=== PATIENT | female | born 1950 | race Caucasian/White ===

== ENCOUNTER 2017-04-23 04:40 | Observation (INO) ==
--- NOTE | 2017-04-23 04:58 | Emergency Department Note ---
Disposition Clinical Impression: Elevated troponin, Kidney stone on right side Disposition: Admitted As Inpatient Condition: Fair Referrals: NONE,PCP [Primary Care Provider] - Forms: ED Satisfaction Letter, Work/School Release Time of Disposition: 07:03 General Adult HPI - General Chief complaint: ED Abdominal Pain Stated complaint: abdominal pain Time Seen by Provider: 04/23/17 04:45 Source: patient Limitations: no limitations Nursing Notes Reviewed: Yes Vital Signs Reviewed: Yes - History of Present Illness HPI Narrative: Patient is a 66-year-old female with a PMHx of DM, HLD, HTN, pancreas surgery, bladder repair, bowel repair, presents to emergency department with the complaint of right lower quadrant abdominal pain that started at 2:00 AM this morning. She describes it as a sharp stabbing pain that waxes and wanes. The pain radiates into her right flank and down into her right groin. She denies any urinary symptoms. Patient states she has also had nausea with the pain, however, no emesis. Patient denies any fevers, chills, headaches, chest pain, shortness of breath or diarrhea. Pain Scale: 8 - Related Data Home Medications Medication Instructions Recorded Confirmed Aspirin [Lo-Dose Aspirin EC] 81 mg PO QPM 03/16/16 12/29/16 BuPROPion SR (12 HR) [Wellbutrin 100 mg PO BID 03/16/16 12/29/16 SR] Budesonide/Formoterol 160/4.5 2 puff IH BID 03/16/16 03/16/16 [Symbicort 160/4.5] Insulin NPH, HUMAN [HumuLIN N] 40 - 55 unit SQ BID 03/16/16 03/16/16 Losartan Potassium [Cozaar] 100 mg PO QPM 03/16/16 12/29/16 Venlafaxine XR (24 HR) [Effexor Xr] 150 mg PO QPM 03/16/16 03/16/16 metFORMIN [Glucophage] 1,000 mg PO DAILY 03/16/16 12/29/16 Cranberry Conc/C/Bacill Coag 1 each PO DAILY 12/29/16 12/29/16 [Cranberry Tablet] Dicyclomine [Bentyl] 10 mg PO TID PRN 12/29/16 12/29/16 Esomeprazole Magnesium [Nexium] 40 mg PO DAILY 12/29/16 12/29/16 Estradiol [Estrace] 2 gm VG DAILY 12/29/16 12/29/16 [place]-3 Acid Ethyl Esters [Lovaza] 2 gm PO BID 12/29/16 12/29/16 Pantoprazole Sodium 40 mg PO BID 12/29/16 12/29/16 Pravastatin Sodium [Pravachol] 40 mg PO QPM 12/29/16 12/29/16 Sucralfate [Carafate] 1 gm PO QIDAC 12/29/16 12/29/16 Temazepam [Restoril] 30 mg PO HS 12/29/16 12/29/16 glipiZIDE [Glucotrol] 5 mg PO BID 12/29/16 12/29/16 Previous Rx's Medication Instructions Recorded Albuterol Sulfate [Albuterol 1 puff IH Q6HR PRN #1 hfa.aer.ad 03/17/16 Inhaler] Ciprofloxacin [Cipro] 500 mg PO BID #20 tablet 12/29/16 GuaiFENesin/Codeine [ROBITUSSIN 5 ml PO Q4-6H PRN #120 ml 12/29/16 w/CODEINE] predniSONE [PredniSONE] 40 mg PO DAILY #10 tablet 12/29/16 Allergies Allergy/AdvReac Type Severity Reaction Status Date / Time Penicillins Allergy Rash Verified 03/16/16 07:38 Sulfa (Sulfonamide Allergy Hives Verified 03/16/16 07:38 Antibiotics) fenofibrate [From Tricor] AdvReac See Verified 03/16/16 07:38 Comments propoxyphene [From Darvon] AdvReac Vomiting Verified 05/29/15 14:34 ivp dye Allergy Hives Uncoded 03/16/16 07:38 All systems ED: reviewed and negative except as stated. Review of Systems: As Per HPI Constitutional: Denies: fever, chills Cardiovascular: Denies: chest pain, palpitations Respiratory: Denies: cough, dyspnea, wheezes Gastrointestinal: Reports: abdominal pain, nausea. Denies: vomiting, diarrhea, hematemesis, melena, hematochezia Genitourinary: Denies: urgency, dysuria, frequency Musculoskeletal: Denies: back pain, neck pain Integumentary: Denies: rash, abrasion Neurological: Denies: headache, weakness, numbness Past Medical History - Past Medical History Attestation: Yes The following information was validated with the patient. Medical history: Reports: asthma, diabetes, hyperlipidemia, hypertension Surgical history: Reports: colectomy (partial), herniorrhaphy, hysterectomy, other (Bladder surgery; pancrease surgery) Psychiatric history: Reports: depression FINANCIAL DIRECTOR history: Reports: bilateral tubal ligation - Social History Smoking Status: Never smoker Smokeless Tobacco Status: No Alcohol use: Reports: none Drug use: Reports: none Physical Exam CONSTITUTIONAL: Alert and oriented X3, well-nourished, well appearing, in no apparent distress. Patient vital signs are stable. HEAD: Normocephalic; atraumatic. EYES: PERRL, no scleral icterus. NOSE: The nose is normal in appearance without rhinorrhea RESP: Normal chest excursion with respiration; breath sounds clear and equal bilaterally; no wheezes, rhonchi, or rales CARD: Regular rhythm, without murmurs, rub or gallop ABD: Non-distended; tenderness greatest in the right lower quadrant without rebound or guarding diffuse abdominal tenderness throughout the rest of the abdomen. BACK: No CVA tenderness, no midline tenderness. SKIN: Normal for age and race; warm and dry; no apparent lesions - General Limitations: no limitations General appearance: alert, in no apparent distress Course Course Narrative: Patient is complaining of right lower quadrant pain radiating from the right flank into the right groin associated with nausea. On physical exam her abdominal pain is greatest in the right lower quadrant however it is diffuse. This patient's atypical presentation plan as did cardiac workup with the patient as well as abdominal workup will check a urine on the patient. Discussed this plan with the patient she plan. Also treat the patient for nausea or pain at this time. - Reevaluation(s) Reevaluation #1: Patient's CT of her abdomen and pelvis came back with a 3 mm stone in the right UVJ with moderate hydroureteronephrosis. She also had elevated troponin which was 0.06 and elevated when compared to prior troponins. Patient's chest x-ray did show mild pulmonary vascular congestion so BNP was ordered, however this was not within normal limits. The patient was not complaining of any chest symptoms. The plan is symmetric patient for elevated troponins. The patient was started on aspirin. I discussed the patient case with Dr. Kulkarni who agrees to accept the patient and requested a urology consult in the ED. Time: 07:16 Reevaluation #2: I discussed the patient's case with Dr. Sterling from urology and he states that the stone will most likely pass on its own, however the patient would like intervention he will have those discussions with the patient. He has no other recommendations at this time. Time: 07:18 Vital Signs Temperature 97.6 F 04/23/17 04:42 Pulse Rate 96 04/23/17 04:42 Respiratory Rate 18 04/23/17 04:42 Blood Pressure 163/90 04/23/17 04:42 O2 Sat by Pulse Oximetry 95 04/23/17 04:42 Temperature 97.6 F 04/23/17 04:42 Pulse Rate 98 04/23/17 06:49 Respiratory Rate 16 04/23/17 06:49 Blood Pressure 137/76 04/23/17 06:49 O2 Sat by Pulse Oximetry 92 04/23/17 06:49 Oxygen Delivery Oxygen Delivery Room Air Medical Decision Making - Medical Records Medical records reviewed: Yes I reviewed the patient's medical records. - Lab Data Lab results reviewed: Yes I reviewed the patient's lab results. Result diagrams: 04/23/17 05:08 04/23/17 05:08 Lab Results 04/23/17 04/23/17 04/23/17 Range/Units 05:08 05:08 05:08 WBC 7.7 (4.3-11.1) K/mcL RBC 5.01 H (3.82-4.97) M/mcL Hgb 12.7 (11.5-15.4) g/dL Hct 40.8 (35.3-44.9) % MCV 81.4 L (83.0-100.0) fL MCH 25.3 L (28.0-33.3) pg MCHC 31.1 L (31.6-35.5) g/dL RDW 16.7 H (11.5-14.5) % Plt Count 218 (140-400) K/mcL MPV 9.7 (9.4-12.4) fL Immature Gran % 1.3 (0-4) % Seg Neutrophils % 70.3 % Lymphocytes % 14.9 % Monocytes % 7.8 % Eosinophils % 5.3 % Basophils % 0.4 % Neutrophils # 5.4 (1.6-8.9) K/mcL Lymphocytes # 1.1 (0.6-4.6) K/mcL Monocytes # 0.6 (0.0-1.3) K/mcL Eosinophils # 0.4 (0.0-0.6) K/mcL Basophils # 0.0 (0.0-0.2) K/mcL Sodium 140 (136-145) mEq/L Potassium 3.6 (3.5-5.1) mEq/L Chloride 104 (98-107) mEq/L Carbon Dioxide 29 (23-29) mEq/L BUN 14 (8-23) mg/dL Creatinine 0.89 (0.60-1.20) mg/dL Est GFR ( Amer) > 60 (> 60) Est GFR (Non-Af Amer) > 60 (> 60) BUN/Creatinine Ratio 16 (6-26) Glucose 193 H (70-105) mg/dL Calculated Osmolality 296 (280-300) Lactic Acid (0.5-2.2) mmol/L Calcium 9.8 (8.6-10.3) mg/dL Total Bilirubin 0.5 (0.3-1.0) mg/dL Direct Bilirubin 0.1 (0.0-0.2) mg/dL Indirect Bilirubin 0.4 (0.0-1.2) mg/dL AST 23 (13-39) Units/L ALT 30 (7-52) Units/L Alkaline Phosphatase 61 (34-104) Units/L Troponin I (< 0.04) ng/mL B-Natriuretic Peptide (Less than 100) pg/mL Serum Total Protein 7.0 (6.4-8.9) g/dL Albumin 4.4 (3.5-5.7) g/dL Globulin 2.6 (2.4-3.5) g/dL Albumin/Globulin Ratio 1.7 (1.1-2.2) Lipase 128 H (11-82) Units/L Urine Color Yellow (Yellow) Urine Clarity Clear (Clear) Urine pH 6.0 (5.0-8.0) pH Units Ur Specific [place] 1.020 (1.010-1.025) Urine Protein Trace (Neg-Trace) mg/dL Urine Glucose (UA) Normal (Normal) mg/dL Urine Ketones Negative (Negative) mg/dL Urine Blood Moderate H (Negative) Urine Nitrite Negative (Negative) Urine Bilirubin Negative (Negative) Urine Urobilinogen Normal (Normal) mg/dL Ur Leukocyte Esterase Small H (Negative) Urine Microscopic RBC 30-50 H (0-3) per hpf Urine Microscopic WBC 5-15 H (0-3) per hpf Ur Squamous Epith Cells Many H (None-Few) per lpf Urine Bacteria None Seen (None-Few) per hpf Hyaline Casts None Seen (None-Few) per lpf Ur Culture Indicated? NO. (NO) 04/23/17 04/23/17 04/23/17 Range/Units 05:08 05:08 05:08 WBC (4.3-11.1) K/mcL RBC (3.82-4.97) M/mcL Hgb (11.5-15.4) g/dL Hct (35.3-44.9) % MCV (83.0-100.0) fL MCH (28.0-33.3) pg MCHC (31.6-35.5) g/dL RDW (11.5-14.5) % Plt Count (140-400) K/mcL MPV (9.4-12.4) fL Immature Gran % (0-4) % Seg Neutrophils % % Lymphocytes % % Monocytes % % Eosinophils % % Basophils % % Neutrophils # (1.6-8.9) K/mcL Lymphocytes # (0.6-4.6) K/mcL Monocytes # (0.0-1.3) K/mcL Eosinophils # (0.0-0.6) K/mcL Basophils # (0.0-0.2) K/mcL Sodium (136-145) mEq/L Potassium (3.5-5.1) mEq/L Chloride (98-107) mEq/L Carbon Dioxide (23-29) mEq/L BUN (8-23) mg/dL Creatinine (0.60-1.20) mg/dL Est GFR ( Amer) (> 60) Est GFR (Non-Af Amer) (> 60) BUN/Creatinine Ratio (6-26) Glucose (70-105) mg/dL Calculated Osmolality (280-300) Lactic Acid 1.8 (0.5-2.2) mmol/L Calcium (8.6-10.3) mg/dL Total Bilirubin (0.3-1.0) mg/dL Direct Bilirubin (0.0-0.2) mg/dL Indirect Bilirubin (0.0-1.2) mg/dL AST (13-39) Units/L ALT (7-52) Units/L Alkaline Phosphatase (34-104) Units/L Troponin I 0.06 H* (< 0.04) ng/mL B-Natriuretic Peptide 79 (Less than 100) pg/mL Serum Total Protein (6.4-8.9) g/dL Albumin (3.5-5.7) g/dL Globulin (2.4-3.5) g/dL Albumin/Globulin Ratio (1.1-2.2) Lipase (11-82) Units/L Urine Color (Yellow) Urine Clarity (Clear) Urine pH (5.0-8.0) pH Units Ur Specific [place] (1.010-1.025) Urine Protein (Neg-Trace) mg/dL Urine Glucose (UA) (Normal) mg/dL Urine Ketones (Negative) mg/dL Urine Blood (Negative) Urine Nitrite (Negative) Urine Bilirubin (Negative) Urine Urobilinogen (Normal) mg/dL Ur Leukocyte Esterase (Negative) Urine Microscopic RBC (0-3) per hpf Urine Microscopic WBC (0-3) per hpf Ur Squamous Epith Cells (None-Few) per lpf Urine Bacteria (None-Few) per hpf Hyaline Casts (None-Few) per lpf Ur Culture Indicated? (NO) - Radiology Data Radiology results reviewed: Yes I reviewed the patient's radiology results. Chest X-Ray 04/23/17 05:20 IMPRESSION: Borderline cardiomegaly with mild vascular congestion that appears stable centrally. D/ / Javier Almaguer MD / Javier Almaguer MD Interpreting Provider: Javier Almaguer MD Abdomen/Pelvis CT 04/23/17 05:23 IMPRESSION: 1. 3 mm stone at the right UVJ with moderate hydroureteronephrosis. 2. Ventral hernia containing a loop of nonobstructed small bowel in the right upper quadrant. D/ / Javier Almaguer MD / aJvier Almaguer MD Interpreting Provider: Javier Almaguer MD - EKG Data EKG #1 EKG attestation: Yes I reviewed and interpreted this EKG. EKG results narrative: EKG done at 6:03 shows sinus rhythm at a rate of 97 bpm. Normal axis. KS is 172, QRS is 112, QT is 367, and QTc is 422 these are within normal limits. No ST elevations, depressions or Q waves present. EKG is unchanged when compared to prior EKG done on 03/16/2016. Attestation Statement - Attestation Attestation: I, Pravin Smith DO, examined this patient [id number] and my medical decision-making was reviewed with Dr. Rusty Monk, Resident Physician. I agree with the documented findings, disposition and treatment plan as described except to the extent set forth below. Please see my progress notes for details. 66-year-old female presents to our emergency room for evaluation of generalized malaise and then onset of right lower quadrant abdominal pain today. Patient is currently denying fevers or chills chest pain shortness of breath headache vision changes nausea vomiting or diarrhea. Denies any vision changes at this point. Patient does have a significant history including multiple abdominal surgeries and diverting colectomy in the past. Patient has not had surgery in greater than 15 years at this time. She has a total hysterectomy as well as a cholecystectomy in her surgical history. She still has her appendix. Patient on physical exam does have stable vital signs are no signs of fever. Her complaint is mainly isolated to the right lower quadrant of the abdomen. Physical exam is otherwise unremarkable except for discomfort in the right lower quadrant of the abdomen. She is alert she is oriented she speaks in full sentences. Her lungs are clear her heart is regular no murmurs. Abdomen is soft but tenderness is noted in the right lower quadrant just above the just over McBurney's point. Patient is concerning for appendicitis versus renal stone. She has had kidney stones in the past and this is different. Detailed review of the presentation as well as medical evaluation EKG chest x-ray labs including troponin function testing and lipase were collected. Patient found to have what appears to 3 mm stone at the UVJ. She incidentally did have an elevated troponin on stable EKG. Her chest x-ray does show pulmonary congestion. Because of his BNP was added on. We will recommend admission for appears to be pulmonary congestion causing cardiac stress. She has never had an elevated troponin in the past. Aspirin will be given here in the emergency room in the next patient will need admission for cardiac evaluation despite the incidental finding of renal stone. See detailed documentation of physical exam , medical intervention, medical decision-making and disposition in the resident physician's note
[2017-04-23] MEDS ORDERED: Ondansetron 4 MG/2 ML VIAL IVP ONE (05:00)
[2017-04-23 05:15] LABS: Bilirubin,Urine Negative (Negative); Blood,Urine Moderate (Negative); Clarity,Urine Clear (Clear); Color,Urine Yellow (Yellow); Glucose,Urine (UA) Normal (Normal); Ketones,Urine Negative (Negative); Leukocyte Esterase,Urine Small (Negative); Nitrite,Urine Negative (Negative); Protein,Urine Trace mg/dL (Neg-Trace); Urobilinogen,Urine Normal (Normal)
[2017-04-23 05:18] LABS: Bacteria,Urine None Seen per hpf (None-Few); Hyaline Casts,Urine None Seen per lpf (None-Few); RBC,Urine 30-50 per hpf (0-3); Squamous Epithelial Cell,Urine Many per lpf (None-Few)
[2017-04-23 05:23] LABS: Basophils % 0.4 %; Eosinophils # 0.4 K/mcL (0.0-0.6); Eosinophils % 5.3 %; Hematocrit 40.8 % (35.3-44.9); Hemoglobin 12.7 g/dL (11.5-15.4); Immature Granulocytes % 1.3 % (0-4); Lymphocytes # 1.1 K/mcL (0.6-4.6); Lymphocytes % 14.9 %; Mean Corpuscular HGB Conc 31.1 g/dL (31.6-35.5); Mean Corpuscular Hemoglobin 25.3 pg (28.0-33.3); Mean Corpuscular Volume 81.4 fL (83.0-100.0); Mean Platelet Volume 9.7 fL (9.4-12.4); Monocytes # 0.6 K/mcL (0.0-1.3); Monocytes % 7.8 %; Neutrophils # 5.4 K/mcL (1.6-8.9); Platelet Count 218 K/mcL (140-400); Red Blood Count 5.01 M/mcL (3.82-4.97); Red Cell Distribution Width 16.7 % (11.5-14.5); Segmented Neutrophils % 70.3 %
[2017-04-23 05:42] LABS: Alanine Aminotransferase 30 Units/L (7-52); Albumin 4.4 g/dL (3.5-5.7); Albumin/Globulin Ratio 1.7 (1.1-2.2); Alkaline Phosphatase 61 Units/L (34-104); Aspartate Amino Transferase 23 Units/L (13-39); BUN/Creatinine Ratio 16 (6-26); Bilirubin,Direct 0.1 mg/dL (0.0-0.2); Bilirubin,Indirect 0.4 mg/dL (0.0-1.2); Bilirubin,Total 0.5 mg/dL (0.3-1.0); Blood Urea Nitrogen 14 mg/dL (8-23); Calcium 9.8 mg/dL (8.6-10.3); Carbon Dioxide 29 mEq/L (23-29); Chloride 104 mEq/L (98-107); Globulin 2.6 g/dL (2.4-3.5); Glucose 193 mg/dL (70-105); Lipase 128 Units/L (11-82); Osmolality,Calculated 296 (280-300); Potassium 3.6 mEq/L (3.5-5.1); Sodium 140 mEq/L (136-145); eGFR For African Americans > 60 (> 60); eGFR For Non-African Americans > 60 (> 60)
[2017-04-23] MEDS ORDERED: Aspirin 81 MG TAB.CHEW PO STA ×2 (05:59→06:57)
[2017-04-23] MEDS ORDERED: *HR* Morphine 2 MG/ML SYRINGE IVP ONE (06:01)
--- NOTE | 2017-04-23 08:04 | Urology - Consult Note ---
Date of Encounter: 04/23/17 Time of Encounter: 08:02 - Assessment and Plan (1) Ureteral stone with hydronephrosis Current Visit: Yes Status: Acute Assessment and plan: pt has a 3 mm UVJ stone with moderate hydronephrosis. unsure the etiology of the elevated troponin levels but could be reactive to the stone and not cardiac in origin. options discussed including trial of passage as she has a high chance to pass the stone or proceeding with a ureteroscopic stone extraction. she states she has no pain at this time and may have passed the stone already. she does not want to proceed with surgery at this time. I recommend cardiac evaluation and if negative then OK with discharge from standpoint with followup as an outpatient. Urology CN:HPI Consult date: 04/23/17 Reason for consult Urology: Hydronephrosis History of present illness: pt presents to ER with flank and ABD discomfort. CT scan demonstrated 3 mm stone at the right UVJ with moderate hydroureteronephrosis. pain better controlled after meds in ER. no active chest pain. Past Med Surg Social Fam HX - Past Medical History Medical history: asthma, diabetes, hyperlipidemia, hypertension Psychiatric history: depression - Past Surgical History Surgical History: colectomy (partial), herniorrhaphy, hysterectomy, other ( Bladder surgery; pancrease surgery) - Social History Smoking Status: Never smoker Smokeless Tobacco Status: No Alcohol use: none Drug use: none Medications and Allergies Aspirin [Lo-Dose Aspirin EC] 81 mg PO QPM 03/16/16 [History] BuPROPion SR (12 HR) [Wellbutrin SR] 100 mg PO BID 03/16/16 [History] Budesonide/Formoterol 160/4.5 [Symbicort 160/4.5] 2 puff IH BID 03/16/16 [ History] Insulin NPH, HUMAN [HumuLIN N] 40 - 55 unit SQ BID 03/16/16 [History] Losartan Potassium [Cozaar] 100 mg PO QPM 03/16/16 [History] Venlafaxine XR (24 HR) [Effexor Xr] 150 mg PO QPM 03/16/16 [History] metFORMIN [Glucophage] 1,000 mg PO DAILY 03/16/16 [History] Albuterol Sulfate [Albuterol Inhaler] 1 puff IH Q6HR PRN #1 hfa.aer.ad 03/17/16 [Rx] Ciprofloxacin [Cipro] 500 mg PO BID #20 tablet 12/29/16 [Rx] Cranberry Conc/C/Bacill Coag [Cranberry Tablet] 1 each PO DAILY 12/29/16 [ History] Dicyclomine [Bentyl] 10 mg PO TID PRN 12/29/16 [History] Esomeprazole Magnesium [Nexium] 40 mg PO DAILY 12/29/16 [History] Estradiol [Estrace] 2 gm VG DAILY 12/29/16 [History] GuaiFENesin/Codeine [ROBITUSSIN w/CODEINE] 5 ml PO Q4-6H PRN #120 ml 12/29/16 [ Rx] [place]-3 Acid Ethyl Esters [Lovaza] 2 gm PO BID 12/29/16 [History] Pantoprazole Sodium 40 mg PO BID 12/29/16 [History] Pravastatin Sodium [Pravachol] 40 mg PO QPM 12/29/16 [History] Sucralfate [Carafate] 1 gm PO QIDAC 12/29/16 [History] Temazepam [Restoril] 30 mg PO HS 12/29/16 [History] glipiZIDE [Glucotrol] 5 mg PO BID 12/29/16 [History] predniSONE [PredniSONE] 40 mg PO DAILY #10 tablet 12/29/16 [Rx] 3 Allergy/AdvReac Type Severity Reaction Status Date / Time Penicillins Allergy Rash Verified 03/16/16 07:38 Sulfa (Sulfonamide Allergy Hives Verified 03/16/16 07:38 Antibiotics) fenofibrate [From Tricor] AdvReac See Verified 03/16/16 07:38 Comments propoxyphene [From Darvon] AdvReac Vomiting Verified 05/29/15 14:34 ivp dye Allergy Hives Uncoded 03/16/16 07:38 Review of Systems - Constitutional fatigue, no fever(s) - EENT Nose, mouth and throat: no dizziness - Cardiovascular no chest pain - Respiratory no cough - Gastrointestinal abdominal pain, nausea - Genitourinary Genitourinary: flank pain, urinary frequency - Musculoskeletal back pain - Integumentary no erythema - Neurological no confusion - Psychiatric no anxiety - Hematologic/Lymphatic no easy bleeding - Allergic/Immunologic no throat swelling Exam Initial Vital Signs Temp Pulse Resp BP Pulse Ox 97.6 F 96 18 163/90 95 12/30/17 04:42 04/23/17 04:42 04/23/17 04:42 04/23/17 04:42 04/23/17 04:42 - General physical appearance Present: no distress, no pain - Eyes Present: PERRL, conjunctiva is clear - ENT Present: normal nares - Neck Present: no masses, no lymphadenopathy - Respiratory Present: normal respiratory effort - Cardiovascular Cardiovascular exam IM: RRR - Abdomen Abdomen: Present: soft, masses, suprapubic tenderness (mild). Absent: guarding - Integumentary Present: no rash. Absent: lesions - Neurologic Present: normal coordination. Absent: disoriented, confused - Musculoskeletal Present: other (no weakness) - Additional Findings + mild CVA tenderness. Urology Results - Labs 04/23/17 05:08 04/23/17 05:08 Abnormal lab results RBC 5.01 M/mcL (3.82-4.97) H 04/23/17 05:08 MCV 81.4 fL (83.0-100.0) L 04/23/17 05:08 MCH 25.3 pg (28.0-33.3) L 04/23/17 05:08 MCHC 31.1 g/dL (31.6-35.5) L 04/23/17 05:08 RDW 16.7 % (11.5-14.5) H 04/23/17 05:08 Glucose 193 mg/dL (70-105) H 04/23/17 05:08 Troponin I 0.06 ng/mL (< 0.04) H* 04/23/17 05:08 Lipase 128 Units/L (11-82) H 04/23/17 05:08 Urine Blood Moderate (Negative) H 04/23/17 05:08 Ur Leukocyte Esterase Small (Negative) H 04/23/17 05:08 Urine Microscopic RBC 30-50 per hpf (0-3) H 04/23/17 05:08 Urine Microscopic WBC 5-15 per hpf (0-3) H 04/23/17 05:08 Ur Squamous Epith Cells Many per lpf (None-Few) H 04/23/17 05:08 All other labs normal. Consult Discharge Plan - Plan Referrals: NONE,PCP [Primary Care Provider] -
--- NOTE | 2017-04-23 09:57 | Internal Med History&Physical ---
Date of Encounter: 04/24/17 Time of Encounter: 09:56 Assessment and Plan (1) Ureteral stone with hydronephrosis Current visit: Yes Status: Acute Urology was consulted and it was D/w the patient that the stone is very likely to be passed given its small size. (2) Hypertension Current visit: No Status: Acute We will cont home meds Qualifiers: Hypertension type: essential hypertension Qualified Code(s): I10 - Essential (primary) hypertension (3) Elevated troponin Current visit: Yes Status: Acute She denies CP, we will trend cardiac enzyme and repeat ECG. (4) Diabetes Current visit: No Status: Acute We will cont home meds, start accu-check with moderate insulin coverage. Qualifiers: Diabetes mellitus type: type 2 Diabetes mellitus complication status: without complication Diabetes mellitus terminal supervisor insulin use: with snf use Qualified Code(s): E11.9 - Type 2 diabetes mellitus without complications ; Z79.4 - intermediate (current) use of insulin; Z79.4 - terminal supervisor (current) use of insulin; Z79.4 - intermediate (current) use of insulin; Z79.4 - intermediate ( current) use of insulin (5) DVT prophylaxis Current visit: Yes Status: Acute We will start heparin sc 2000 BID Internal Medicine - H&P: HPI Chief complaint: Abd pain History of present illness: Ms. Sterling is a 66 year old female Patient is a 66-year-old female with a PMHx of DM, HLD, HTN, pancreas surgery, bladder repair, bowel repair, presents to emergency department with the complaint of right lower quadrant abdominal pain that started at 2:00 AM this morning. She describes it as a sharp stabbing pain that waxes and wanes. The pain radiates into her right flank and down into her right groin. Ct revealed that the pt has a 3 mm UVJ stone with moderate hydronephrosis. Urology was consulted and patient will bed admitted for further evaluation. Past Med Surg Social Fam HX - Past Medical History Medical history: asthma, diabetes, hyperlipidemia, hypertension Psychiatric history: depression - Past Surgical History Surgical History: colectomy (partial), herniorrhaphy, hysterectomy, other ( Bladder surgery; pancrease surgery) - Social History Smoking Status: Never smoker Smokeless Tobacco Status: No Alcohol use: none Drug use: none Internal Medicine - H&P: Meds Aspirin [Lo-Dose Aspirin EC] 81 mg PO QPM 03/16/16 [History] BuPROPion SR (12 HR) [Wellbutrin SR] 100 mg PO DAILY 03/16/16 [History] Budesonide/Formoterol 160/4.5 [Symbicort 160/4.5] 2 puff IH BID PRN 03/16/16 [ History] Insulin NPH, HUMAN [HumuLIN N] 40 - 55 unit SQ BID 03/16/16 [History] Losartan Potassium [Cozaar] 100 mg PO QPM 03/16/16 [History] Venlafaxine XR (24 HR) [Effexor Xr] 150 mg PO QPM 03/16/16 [History] metFORMIN [Glucophage] 1,000 mg PO DAILY 03/16/16 [History] Albuterol Sulfate [Albuterol Inhaler] 1 puff IH Q6HR PRN #1 hfa.aer.ad 03/17/16 [Rx] Ciprofloxacin [Cipro] 500 mg PO BID #20 tablet 12/29/16 [Rx] Cranberry Conc/C/Bacill Coag [Cranberry Tablet] 1 each PO DAILY 12/29/16 [ History] Dicyclomine [Bentyl] 10 mg PO TID PRN 12/29/16 [History] Esomeprazole Magnesium [Nexium] 40 mg PO DAILY 12/29/16 [History] Estradiol [Estrace] 2 gm VG DAILY 12/29/16 [History] [place]-3 Acid Ethyl Esters [Lovaza] 2 gm PO BID 12/29/16 [History] Pantoprazole Sodium 40 mg PO BID 12/29/16 [History] Pravastatin Sodium [Pravachol] 40 mg PO QPM 12/29/16 [History] Temazepam [Restoril] 30 mg PO HS 12/29/16 [History] glipiZIDE [Glucotrol] 5 mg PO BID 12/29/16 [History] Pantoprazole Sodium [Protonix] 40 mg PO BID 04/23/17 [History] 3 Allergy/AdvReac Type Severity Reaction Status Date / Time Penicillins Allergy Rash Verified 03/16/16 07:38 Sulfa (Sulfonamide Allergy Hives Verified 03/16/16 07:38 Antibiotics) fenofibrate [From Tricor] AdvReac See Verified 03/16/16 07:38 Comments propoxyphene [From Darvon] AdvReac Vomiting Verified 05/29/15 14:34 ivp dye Allergy Hives Uncoded 03/16/16 07:38 All Systems PM: A 10-system review of systems was performed and is negative for pertinent findings except as documented above in the HPI. - Constitutional Vitals: Temp Pulse Resp BP Pulse Ox 97.6 F 98 18 141/72 92 04/23/17 04:42 04/23/17 06:49 04/23/17 08:10 04/23/17 08:10 04/23/17 06:49 Internal Med - H&P Results - Labs CBC & Chem 7: 04/24/17 06:43 04/23/17 05:08
[2017-04-23] MEDS ORDERED: *HR* Morphine 2 MG/ML SYRINGE IVP PRN (10:06)
[2017-04-23] MEDS ORDERED: Ondansetron ODT 4 MG TAB.RAPDIS SL PRN (10:06)
[2017-04-23] MEDS ORDERED: Naloxone 0.4 MG/ML INJ IVP PRN (10:06)
[2017-04-23] MEDS: 0.9 % Sodium Chloride 1,000 ML IVC SCH ×2 (11:10→19:43)
[2017-04-23 12:56] LABS: Bilirubin,Urine Negative (Negative); Blood,Urine Trace (Negative); Clarity,Urine Clear (Clear); Color,Urine Yellow (Yellow); Glucose,Urine (UA) Normal (Normal); Ketones,Urine Negative (Negative); Leukocyte Esterase,Urine Negative (Negative); Nitrite,Urine Negative (Negative); Protein,Urine Negative (Neg-Trace); Specific Gravity,Urine > 1.030 (1.010-1.025); Urobilinogen,Urine Normal (Normal)
[2017-04-23 12:59] LABS: Bacteria,Urine None Seen per hpf (None-Few); Hyaline Casts,Urine None Seen per lpf (None-Few); Squamous Epithelial Cell,Urine Moderate per lpf (None-Few); WBC,Urine 0-3 per hpf (0-3)
[2017-04-23] MEDS ORDERED: Dextrose Gel 15 GM/37.5 ML TUBE PO PRN ×2 (13:01)
[2017-04-23] MEDS ORDERED: *HR* Dextrose 50 % in Water (Syg) 50 ML SYRINGE IVP PRN (13:01)
[2017-04-23] MEDS ORDERED: D5% in Water 1,000 ML IVC PRN (13:01)
[2017-04-23] MEDS: Acetaminophen 325 MG TABLET PO PRN ×2 (13:18→21:43)
[2017-04-23] MEDS: Insulin LISPRO 300 UNITS/3 ML VIAL SQ SCH ×2 (17:57→21:44)
[2017-04-23] MEDS ORDERED: Loratadine 10 MG TABLET PO STA (20:02)
[2017-04-23] MEDS: Temazepam 15 MG CAPSULE PO PRN (21:42)
[2017-04-23] MEDS: Venlafaxine XR (24 HR) 150 MG CAP.ER.24H PO SCH (21:43)
--- NOTE | 2017-04-23 22:52 | Event Note ---
Date of Encounter: 04/23/17 Time of Encounter: 21:00 EKG was ordered by Day team for elevated Troponin; EKG reviewed- normal sinus rhythm, no ST-T wave changes s/o ischemia; patient has no complaints;
[2017-04-24] MEDS: Pantoprazole 40 MG VIAL IVP SCH ×2 (05:41→17:33)
[2017-04-24] MEDS ORDERED: Furosemide 20 MG/2 ML VIAL IVP ONE ×2 (06:27→06:32)
--- NOTE | 2017-04-24 07:08 | Urology Progress Note ---
Date of Encounter: 04/24/17 Time of Encounter: 07:06 - Assessment and Plan (1) Ureteral stone with hydronephrosis Current Visit: Yes Status: Acute Assessment and plan: very likely passed the stone. pt has no further pain. no intervention unless condition changes. I instructed pt that if SOB or develops CP to notify nurse immediately. She said she was "OK" Progress Note Narrative: Pt has no further pain in her flank or abd. States some increased SOB this AM and she told nurse about 15 min before. Objective Initial Vital Signs Temp Pulse Resp BP Pulse Ox 97.6 F 96 18 163/90 95 04/23/17 04:42 04/23/17 04:42 04/23/17 04:42 04/23/17 04:42 04/23/17 04:42 - General physical appearance Present: no distress, no pain - Respiratory Present: other (seems to be breathing heavy but no obvious resp distress. ) - Labs 04/23/17 05:08 04/23/17 05:08 Consult Discharge Plan - Plan Referrals: NONE,PCP [Primary Care Provider] -
[2017-04-24 07:09] LABS: Hemoglobin 11.2 g/dL (11.5-15.4); Mean Corpuscular HGB Conc 30.3 g/dL (31.6-35.5); Mean Corpuscular Hemoglobin 25.5 pg (28.0-33.3); Mean Corpuscular Volume 84.1 fL (83.0-100.0); Mean Platelet Volume 9.9 fL (9.4-12.4); Platelet Count 191 K/mcL (140-400); Red Cell Distribution Width 17.2 % (11.5-14.5)
[2017-04-24 07:38] LABS: Alanine Aminotransferase 27 Units/L (7-52); Albumin 3.8 g/dL (3.5-5.7); Albumin/Globulin Ratio 1.7 (1.1-2.2); Alkaline Phosphatase 51 Units/L (34-104); Aspartate Amino Transferase 18 Units/L (13-39); BUN/Creatinine Ratio 15 (6-26); Bilirubin,Total 0.4 mg/dL (0.3-1.0); Blood Urea Nitrogen 11 mg/dL (8-23); Calcium 8.6 mg/dL (8.6-10.3); Carbon Dioxide 29 mEq/L (23-29); Chloride 108 mEq/L (98-107); Chol/HDL Ratio 3.5 (0-4.9); Cholesterol 128 mg/dL (< 200); Globulin 2.2 g/dL (2.4-3.5); Glucose 165 mg/dL (70-105); HDL Cholesterol 37 mg/dL (40-59); LDL Cholesterol,Calculated 50 mg/dL (0-99); Magnesium 1.7 mg/dL (1.6-2.6); Osmolality,Calculated 295 (280-300); Phosphorous 3.1 mg/dL (2.7-4.5); Potassium 3.9 mEq/L (3.5-5.1); Sodium 141 mEq/L (136-145); Triglycerides 204 mg/dL (< 150); eGFR For African Americans > 60 (> 60); eGFR For Non-African Americans > 60 (> 60)
[2017-04-24 08:01] LABS: INR 1.1; Prothrombin Time 11.4 Seconds (9.4-12.1)
[2017-04-24 08:04] LABS: Activated Partial Thrombo Time 27.5 Seconds (26.0-36.0)
[2017-04-24] MEDS: Insulin LISPRO 300 UNITS/3 ML VIAL SQ SCH ×4 (08:35→20:46)
--- NOTE | 2017-04-24 14:18 | Internal Med Progress Note ---
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 of insulin; Z79.4 - care home ( current) use of insulin (2) Hypertension Current Visit: Yes Status: Chronic Assessment and plan: Controlled, continue current meds Qualifiers: Hypertension type: essential hypertension Qualified Code(s): I10 - Essential (primary) hypertension (3) Elevated troponin Current Visit: Yes Status: Acute Assessment and plan: Obtain ECHO no chest pain EKG WNL (4) Ureteral stone with hydronephrosis Current Visit: Yes Status: Resolved Assessment and plan: Resolved tylenol prn for pain encourage liberal fluid hydration - Subjective Interval history: Seen and evaluated at bedside She was placed onobservation for ureteric colic Has resolved, per urology, patient may have passed stones Incidental finding of elevated troponin, no chest pain EKG is unremarkable CBC/Chem normal Patient is seen at bedside, denies new complains We will obtain ECHO to assess EF and WMA, will discharge home if normal Plan of care discussed, verbalized understanding - Constitutional Vitals: Temp Pulse Resp BP Pulse Ox 97.3 F L 96 17 120/72 92 04/24/17 12:13 04/24/17 12:13 04/24/17 12:13 04/24/17 12:13 04/24/17 12:13 General appearance: Present: A&O X 3, no acute distress - Head Head exam: Present: atraumatic, normocephalic - Eye Eye exam: Present: PERRL, conjuntiva pink, sclera anicteric Pupils: Present: PERRL - Neck Neck exam general surgery: Present: supple, trachea midline. Absent: lymphadenopathy - Respiratory Respiratory exam: Present: CTAB. Absent: accessory muscle use, rales, rhonchi, wheezes - Cardiovascular Cardiovascular exam: Present: RRR, +S1, +S2. Absent: diastolic murmur, gallop, rubs, systolic murmur - GI/Abdominal GI/Abdominal exam: Present: normal bowel sounds, soft, no peritoneal signs. Absent: distended, tenderness - Extremities Exam Extremities exam: Present: warm, radial pulses palpable and symmetrical. Absent : calf tenderness, cyanotic, pedal edema - Neurological Exam Neurological exam: Present: alert, CN II-XII intact, oriented X3, no focal deficits. Absent: pronater drift, facial droop, speech deficit - Skin Skin exam: Present: dry, intact Internal Medicine: Result - Labs CBC & Chem 7: 04/24/17 06:43 04/24/17 06:43 Labs: Short CBC 04/24/17 Range/Units 06:43 WBC 5.4 (4.3-11.1) K/mcL Hgb 11.2 L D (11.5-15.4) g/dL Hct 37.0 (35.3-44.9) % Plt Count 191 (140-400) K/mcL BMP 04/24/17 06:43 Sodium 141 Potassium 3.9 Chloride 108 H Carbon Dioxide 29 BUN 11 Creatinine 0.73 Glucose 165 H Calcium 8.6 Cardiac Enzymes 04/23/17 04/23/17 Range/Units 16:41 22:20 Troponin I 0.08 H* 0.06 H* (< 0.04) ng/mL Liver Function 04/24/17 Range/Units 06:43 Total Bilirubin 0.4 (0.3-1.0) mg/dL AST 18 (13-39) Units/L ALT 27 (7-52) Units/L Alkaline Phosphatase 51 (34-104) Units/L Albumin 3.8 (3.5-5.7) g/dL - ABG Interpretation ABG results: PT/INR, D-dimer PT 11.4 Seconds (9.4-12.1) 04/24/17 06:43 Consult Discharge Plan - Plan Referrals: NONE,PCP [Primary Care Provider] -
[2017-04-24] MEDS: Venlafaxine XR (24 HR) 150 MG CAP.ER.24H PO SCH (17:33)
[2017-04-24] MEDS ORDERED: Pantoprazole 40 MG VIAL IVP SCH (19:59)
[2017-04-24] MEDS: Temazepam 15 MG CAPSULE PO PRN (20:53)
[2017-04-25] MEDS: Pantoprazole 40 MG VIAL IVP SCH (06:01)
[2017-04-25] MEDS: Insulin LISPRO 300 UNITS/3 ML VIAL SQ SCH ×2 (09:32→12:28)
[2017-04-25 12:23] VITALS: BP 133/80
--- NOTE | 2017-04-25 14:52 | Discharge Summary ---
Date of Encounter: 04/25/17 Time of Encounter: 14:52 - Discharge Diagnosis (1) Diabetes Priority: Secondary Status: Chronic Qualifiers: Diabetes mellitus type: type 2 Diabetes mellitus complication status: without complication Diabetes mellitus long term care social worker insulin use: with long term care social worker use Qualified Code(s): E11.9 - Type 2 diabetes mellitus without complications ; Z79.4 - [facility] (current) use of insulin; Z79.4 - [facility] (current) use of insulin; Z79.4 - [facility] (current) use of insulin; Z79.4 - [facility] ( current) use of insulin (2) Hypertension Priority: Secondary Status: Chronic Qualifiers: Hypertension type: essential hypertension Qualified Code(s): I10 - Essential (primary) hypertension (3) Elevated troponin Priority: Primary Status: Acute (4) Ureteral stone with hydronephrosis Priority: Primary Status: Resolved - Discharge Medications Home Medications: Aspirin [Lo-Dose Aspirin EC] 81 mg PO QPM 03/16/16 [History] BuPROPion SR (12 HR) [Wellbutrin SR] 100 mg PO DAILY 03/16/16 [History] Budesonide/Formoterol 160/4.5 [Symbicort 160/4.5] 2 puff IH BID PRN 03/16/16 [ History] Insulin NPH, HUMAN [HumuLIN N] 40 - 55 unit SQ BID 03/16/16 [History] Losartan Potassium [Cozaar] 100 mg PO QPM 03/16/16 [History] Venlafaxine XR (24 HR) [Effexor Xr] 150 mg PO QPM 03/16/16 [History] metFORMIN [Glucophage] 1,000 mg PO DAILY 03/16/16 [History] Albuterol Sulfate [Albuterol Inhaler] 1 puff IH Q6HR PRN #1 hfa.aer.ad 03/17/16 [Rx] Ciprofloxacin [Cipro] 500 mg PO BID #20 tablet 12/29/16 [Rx] Cranberry Conc/C/Bacill Coag [Cranberry Tablet] 1 each PO DAILY 12/29/16 [ History] Dicyclomine [Bentyl] 10 mg PO TID PRN 12/29/16 [History] Esomeprazole Magnesium [Nexium] 40 mg PO DAILY 12/29/16 [History] Estradiol [Estrace] 2 gm VG DAILY 12/29/16 [History] [place]-3 Acid Ethyl Esters [Lovaza] 2 gm PO BID 12/29/16 [History] Pantoprazole Sodium 40 mg PO BID 12/29/16 [History] Pravastatin Sodium [Pravachol] 40 mg PO QPM 12/29/16 [History] Temazepam [Restoril] 30 mg PO HS 12/29/16 [History] glipiZIDE [Glucotrol] 5 mg PO BID 12/29/16 [History] Pantoprazole Sodium [Protonix] 40 mg PO BID 04/23/17 [History] Allergies/Adverse Reactions: 3 Allergy/AdvReac Type Severity Reaction Status Date / Time Penicillins Allergy Rash Verified 03/16/16 07:38 Sulfa (Sulfonamide Allergy Hives Verified 03/16/16 07:38 Antibiotics) fenofibrate [From Tricor] AdvReac See Verified 03/16/16 07:38 Comments propoxyphene [From Darvon] AdvReac Vomiting Verified 05/29/15 14:34 ivp dye Allergy Hives Uncoded 03/16/16 07:38 Procedures/tests Complete & Pending: Procedures Performed prior 72 hours Category Date Time Status EKG [ECG 12 lead ECG] [ECG] Stat Y 04/23/17 17:50 Ordered EV echocardiogram Routine Y 04/24/17 08:35 Completed Date of admission: 04/23/17 07:40 Primary care physician: PCP LAURYN Discharging clinician: Kailash Headley Anticipated date of discharge: 04/25/17 - Patient Status Disposition: Home, Self-Care Condition: Good Functional capacity at discharge: independent ambulation Overall status at discharge: patient is back to baseline - Discharge Instructions Follow Up With: NONE,PCP [Primary Care Provider] - - Diet and Activity Activity: resume usual activities as tolerated Diet: diabetic diet, low salt diet Interval History: See below Hospital course: Ms. Sterling is a 66 year old female with DM, HTN She was placed on observation for ureteric colic This has resolved, per urology, patient may have passed stones Incidental finding of elevated troponin, no chest pain EKG is unremarkable CBC/Chem normal ECHO was ordered to assess EF and WMA, ECHO was completed yesterday 04/06/17, awaiting report She is seen and examined at bedside, no new complains. She is asking to be discharged home and have her ECHO report sent to her physician's office Since patient did not have chest pain and EKG was unremarkable, she is ambulatory and no complains of chest pain or SOB We will discharge home to continue her current home medications Plan of care discussed, verbalized understanding - Time Spent with Patient Total time spent providing and/or coordinating discharge services: Greater than 30 minutes - Constitutional Vitals: Temp Pulse Resp BP Pulse Ox 98.6 F 92 16 133/80 94 04/25/17 12:19 04/25/17 12:19 04/25/17 12:19 04/25/17 12:19 04/25/17 12:19 General appearance: Present: A&O X 3, pleasant, no acute distress - Head Head exam: Present: atraumatic, normocephalic - Eye Eye exam: Present: PERRL, conjuntiva pink, sclera anicteric Pupils: Present: PERRL - Neck Neck exam general surgery: Present: supple, trachea midline. Absent: lymphadenopathy - Respiratory Respiratory exam: Present: CTAB. Absent: accessory muscle use, rales, rhonchi, wheezes - Cardiovascular Cardiovascular exam: Present: RRR, +S1, +S2. Absent: diastolic murmur, gallop, rubs, systolic murmur - GI/Abdominal GI/Abdominal exam: Present: normal bowel sounds, soft, no peritoneal signs. Absent: distended, tenderness - Extremities Exam Extremities exam: Present: warm, radial pulses palpable and symmetrical. Absent : calf tenderness, cyanotic, pedal edema - Neurological Exam Neurological exam: Present: alert, CN II-XII intact, oriented X3, no focal deficits. Absent: pronater drift, facial droop, speech deficit - Skin Skin exam: Present: dry, intact
--- NOTE | 2017-04-26 14:08 | Electrocardiograph Report ---
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
--- NOTE | 2017-04-26 15:59 | Electrocardiograph Report ---
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
== END 2017-04-25 16:22 | disposition home or self-care (01) ==
LOC: EMEROO 04:40 → 3BNU 04:40 → SUATTDRO 07:40 → 3BNU 08:11
PROVIDERS: ADMIT Internal Medicine Nephrology; ATTEND Internal Medicine

== ENCOUNTER 2019-08-14 13:01 | Inpatient (IN) ==
[2019-08-14] MEDS ORDERED: Furosemide 40 MG/4 ML VIAL IVP ONE (13:46)
[2019-08-14 13:52] LABS: Basophils % 0.5 %; Eosinophils # 0.1 K/mcL (0.0-0.6); Eosinophils % 2.5 %; Hemoglobin 11.8 g/dL (11.5-15.4); Immature Granulocytes % 1.8 % (0-4); Lymphocytes # 1.1 K/mcL (0.6-4.6); Lymphocytes % 20.3 %; Mean Corpuscular HGB Conc 31.9 g/dL (31.6-35.5); Mean Corpuscular Hemoglobin 26.2 pg (28.0-33.3); Mean Corpuscular Volume 82.2 fL (83.0-100.0); Mean Platelet Volume 9.8 fL (9.4-12.4); Monocytes # 0.3 K/mcL (0.0-1.3); Monocytes % 5.4 %; Neutrophils # 3.9 K/mcL (1.6-8.9); Platelet Count 235 K/mcL (140-400); Red Cell Distribution Width 17.4 % (11.5-14.5); Segmented Neutrophils % 69.5 %; White Blood Count 5.6 K/mcL (4.3-11.1)
[2019-08-14 14:15] LABS: BUN/Creatinine Ratio 16 (6-26); Blood Urea Nitrogen 13 mg/dL (8-23); Carbon Dioxide 25 mEq/L (23-29); Chloride 103 mEq/L (98-107); Glucose 196 mg/dL (70-105); Osmolality,Calculated 294 (280-300); Potassium 3.8 mEq/L (3.5-5.1); Sodium 139 mEq/L (136-145); eGFR For African Americans > 60 (> 60); eGFR For Non-African Americans > 60 (> 60)
[2019-08-14 14:18] LABS: Troponin I 0.05 ng/mL (< 0.04)
[2019-08-14] MEDS ORDERED: Naloxone 0.4 MG/ML INJ IVP PRN (14:44)
[2019-08-14] MEDS ORDERED: *HR* Promethazine 25 MG/ML VIAL IVP PRN (14:44)
[2019-08-14] MEDS ORDERED: Dextrose Gel 15 GM/37.5 ML TUBE PO PRN ×2 (14:47)
[2019-08-14] MEDS ORDERED: *HR* Dextrose 50 % in Water (Syg) 50 ML SYRINGE IVP PRN (14:47)
[2019-08-14] MEDS ORDERED: D5% in Water 1,000 ML IVC PRN (14:47)
[2019-08-14] MEDS ORDERED: Ondansetron ODT 4 MG TAB.RAPDIS PO PRN (14:49)
[2019-08-14] MEDS ORDERED: *HR* OxyCODONE Immed Rel 5 MG TABLET PO PRN (14:49)
[2019-08-14] MEDS: Insulin LISPRO 300 UNITS/3 ML VIAL SQ SCH (18:37)
[2019-08-14] MEDS: *HR* Heparin 5,000 UNIT/ML VIAL SQ SCH (18:37)
[2019-08-14] MEDS ORDERED: Perflutren Lipid Microsphere 1.3 ML in 0.9 % Sodium Chloride 8.7 ML IVP ONE (20:42)
[2019-08-14] MEDS: Furosemide 40 MG/4 ML VIAL IVP SCH (20:42)
[2019-08-14] MEDS: Insulin DETEMIR 100 UNIT/ML X5UNITS SQ SCH (20:42)
[2019-08-15 01:12] LABS: Basophils % 0.4 %; Eosinophils # 0.2 K/mcL (0.0-0.6); Eosinophils % 2.2 %; Hemoglobin 12.1 g/dL (11.5-15.4); Lymphocytes # 1.6 K/mcL (0.6-4.6); Lymphocytes % 21.1 %; Mean Corpuscular HGB Conc 31.8 g/dL (31.6-35.5); Mean Corpuscular Hemoglobin 26.1 pg (28.0-33.3); Mean Corpuscular Volume 82.1 fL (83.0-100.0); Mean Platelet Volume 9.7 fL (9.4-12.4); Monocytes # 0.5 K/mcL (0.0-1.3); Neutrophils # 5.2 K/mcL (1.6-8.9); Platelet Count 243 K/mcL (140-400); Red Blood Count 4.63 M/mcL (3.82-4.97); Red Cell Distribution Width 17.7 % (11.5-14.5); Segmented Neutrophils % 68.3 %; White Blood Count 7.7 K/mcL (4.3-11.1)
[2019-08-15 01:31] LABS: Calcium 10.5 mg/dL (8.6-10.3); Magnesium 1.5 mg/dL (1.6-2.6); Phosphorous 4.6 mg/dL (2.7-4.5); Potassium 3.5 mEq/L (3.5-5.1)
[2019-08-15] MEDS: *HR* Heparin 5,000 UNIT/ML VIAL SQ SCH ×2 (05:56→17:53)
[2019-08-15] MEDS: Aspirin Enteric Coated 81 MG Tablet PO SCH (08:20)
[2019-08-15] MEDS: Cyanocobalamin (B-12) 1,000 MCG TABLET PO SCH (08:20)
[2019-08-15] MEDS: Furosemide 40 MG/4 ML VIAL IVP SCH (08:21)
[2019-08-15] MEDS: Insulin LISPRO 300 UNITS/3 ML VIAL SQ SCH ×3 (08:21→17:57)
[2019-08-15] MEDS: Insulin DETEMIR 100 UNIT/ML X5UNITS SQ SCH ×2 (08:28→21:06)
[2019-08-15] MEDS ORDERED: amLODIPine 5 MG TABLET PO SCH (09:00)
[2019-08-15] MEDS ORDERED: Furosemide 40 MG/4 ML VIAL IVP ONE (17:00)
[2019-08-15] MEDS: carvediloL 6.25 MG TABLET PO SCH (17:54)
[2019-08-15] MEDS: predniSONE 20 MG TABLET PO SCH (21:04)
[2019-08-15] MEDS: Acetaminophen 325 MG TABLET PO PRN (21:24)
[2019-08-16 02:19] LABS: BUN/Creatinine Ratio 27 (6-26); Blood Urea Nitrogen 28 mg/dL (8-23); Calcium 10.4 mg/dL (8.6-10.3); Carbon Dioxide 26 mEq/L (23-29); Chloride 98 mEq/L (98-107); Glucose 229 mg/dL (70-105); Osmolality,Calculated 293 (280-300); Phosphorous 3.5 mg/dL (2.7-4.5); Potassium 3.8 mEq/L (3.5-5.1); Sodium 135 mEq/L (136-145); eGFR For African Americans > 60 (> 60); eGFR For Non-African Americans 52 (> 60)
[2019-08-16] MEDS: *HR* Heparin 5,000 UNIT/ML VIAL SQ SCH ×2 (06:20→17:44)
[2019-08-16] MEDS: predniSONE 20 MG TABLET PO SCH (08:08)
[2019-08-16] MEDS: Aspirin Enteric Coated 81 MG Tablet PO SCH (08:10)
[2019-08-16] MEDS: Cyanocobalamin (B-12) 1,000 MCG TABLET PO SCH (08:12)
[2019-08-16] MEDS: Furosemide 40 MG TABLET PO SCH (08:12)
[2019-08-16] MEDS: carvediloL 6.25 MG TABLET PO SCH ×2 (08:13→17:39)
[2019-08-16] MEDS: Insulin LISPRO 300 UNITS/3 ML VIAL SQ SCH ×2 (08:14→17:43)
[2019-08-16] MEDS ORDERED: 0.9 % Sodium Chloride 1,000 ML ONE ×2 (12:16→13:00)
[2019-08-16] MEDS ORDERED: Heparin 1,000 UNITS/500 mL 500 ML ONE (12:16)
[2019-08-16] MEDS ORDERED: ISOVUE-370 200 ML INFUS..BTL ONE (12:16)
[2019-08-16] MEDS ORDERED: *HR* Heparin 10,000 UNIT/10 ML VIAL ONE (12:16)
[2019-08-16] MEDS ORDERED: Nitroglycerin 1,000 MCG/10 ML VIAL IV ONE (12:16)
[2019-08-16] MEDS ORDERED: *HR* Midazolam HCl 2 MG/2 ML VIAL ONE (13:15)
[2019-08-16] MEDS ORDERED: *HR* FentaNYL (PF) 100 MCG/2 ML VIAL ONE (13:15)
[2019-08-16] MEDS: Sacubitril/Valsartan 24/26 MG 1 TABLET PO SCH (20:10)
[2019-08-16] MEDS: Insulin DETEMIR 100 UNIT/ML X5UNITS SQ SCH (20:11)
[2019-08-16] MEDS: Acetaminophen 325 MG TABLET PO PRN (20:18)
[2019-08-16] MEDS ORDERED: Insulin LISPRO 300 UNITS/3 ML VIAL SQ SCH (21:00)
[2019-08-17 02:51] LABS: Basophils % 0.1 %; Hematocrit 35.6 % (35.3-44.9); Hemoglobin 11.2 g/dL (11.5-15.4); Immature Granulocytes % 0.9 % (0-4); Lymphocytes # 0.9 K/mcL (0.6-4.6); Mean Corpuscular HGB Conc 31.5 g/dL (31.6-35.5); Mean Corpuscular Hemoglobin 25.9 pg (28.0-33.3); Mean Corpuscular Volume 82.2 fL (83.0-100.0); Mean Platelet Volume 10.3 fL (9.4-12.4); Monocytes # 0.5 K/mcL (0.0-1.3); Monocytes % 5.1 %; Neutrophils # 8.8 K/mcL (1.6-8.9); Platelet Count 271 K/mcL (140-400); Red Blood Count 4.33 M/mcL (3.82-4.97); Red Cell Distribution Width 17.1 % (11.5-14.5); Segmented Neutrophils % 84.9 %; White Blood Count 10.4 K/mcL (4.3-11.1)
[2019-08-17 03:06] LABS: BUN/Creatinine Ratio 32 (6-26); Blood Urea Nitrogen 32 mg/dL (8-23); Calcium 10.1 mg/dL (8.6-10.3); Carbon Dioxide 24 mEq/L (23-29); Chloride 100 mEq/L (98-107); Glucose 274 mg/dL (70-105); Osmolality,Calculated 297 (280-300); Phosphorous 3.6 mg/dL (2.7-4.5); Sodium 135 mEq/L (136-145); eGFR For African Americans > 60 (> 60); eGFR For Non-African Americans 55 (> 60)
[2019-08-17] MEDS: *HR* Heparin 5,000 UNIT/ML VIAL SQ SCH (05:38)
[2019-08-17 07:17] VITALS: BP 124/78
[2019-08-17] MEDS: Insulin LISPRO 300 UNITS/3 ML VIAL SQ SCH (08:41)
[2019-08-17] MEDS: Cyanocobalamin (B-12) 1,000 MCG TABLET PO SCH (08:41)
[2019-08-17] MEDS: Furosemide 40 MG TABLET PO SCH (08:42)
[2019-08-17] MEDS: carvediloL 6.25 MG TABLET PO SCH (08:42)
[2019-08-17] MEDS: Sacubitril/Valsartan 24/26 MG 1 TABLET PO SCH (08:42)
[2019-08-17] MEDS: Aspirin Enteric Coated 81 MG Tablet PO SCH (08:42)
[2019-08-17] MEDS ORDERED: Spironolactone 25 MG TABLET PO SCH (09:00)
== END 2019-08-17 11:18 | disposition home or self-care (01) | DRG 287 ==
LOC: 3BNU 13:01 → EMEROOARM 13:01 → 3BNU 17:34 → SUATTDRO 08-15 14:43
PROVIDERS: ADMIT Internal Medicine; ATTEND Internal Medicine